=== PATIENT | female | born 1975 | race Two or more races ===

== ENCOUNTER 2019-08-14 06:57 | Outpatient (CLI) | payer OTHER | END 2019-08-14 07:04 | disposition home or self-care (01) | LOC: LAB 06:57 | DX: E78.49 Other hyperlipidemia (principal); E55.9 Vitamin D deficiency, unspecified; N39.0 Urinary tract infection, site not specified; R42 Dizziness and giddiness; Z00.00 Encounter for general adult medical examination without abnormal findings ==

== ENCOUNTER 2019-08-18 08:38 | Outpatient (CLI) | payer OTHER | END 2019-08-18 17:00 | disposition home or self-care (01) | LOC: MAMO-SONO 08:38 | DX: N64.4 Mastodynia (principal) ==

== ENCOUNTER 2020-03-26 08:00 | Outpatient (CLI) | payer OTHER | END 2020-03-26 15:00 | disposition home or self-care (01) | LOC: EDBD 08:00 → LAB 08:00 | DX: E11.9 Type 2 diabetes mellitus without complications (principal) ==

== ENCOUNTER 2020-04-05 10:13 | Outpatient (CLI) | payer OTHER | END 2020-04-05 10:14 | disposition home or self-care (01) | LOC: LAB 10:13 | PROVIDERS: ATTEND Internal Medicine | DX: E55.9 Vitamin D deficiency, unspecified (principal); Z00.8 Encounter for other general examination ==